=== PATIENT | female | born 1945 | race Caucasian/White ===

== ENCOUNTER 2019-09-30 16:16 | Emergency (ER) | payer OTHER ==
[~2019-09-30] VITALS: Ht 170.2 cm; Wt 126.6 kg
--- NOTE | 2019-09-30 16:24 | NUR ---
adam, from home, altered than usual since yesterday around 9am per [facility]N, PT [id number], PT ON MONITOR, PENDING MD BELLE
[2019-09-30] MEDS ORDERED: IV NS 0.9% 1,000 ML BAG IV ONE ×2 (16:30→18:30)
[2019-09-30 16:48] LABS: BASOPHILS # (AUTO) 0.1 /CMM (0.0-0.2); BASOPHILS % (AUTO) 0.5 % (0.0-2.0); HEMATOCRIT 45 % (33-45); HEMOGLOBIN 14.7 g/dL (11.5-14.8); LYMPHOCYTES # (AUTO) 0.7 /CMM (0.8-4.8); LYMPHOCYTES % (AUTO) 6.8 % (20.0-44.0); MEAN CORPUSCULAR HGB CONC 33 g/dl (31.0-36.0); MEAN CORPUSCULAR VOLUME 94 fL (82-100); MONOCYTES # (AUTO) 0.4 /CMM (0.1-1.30); MONOCYTES % (AUTO) 3.9 % (2.0-12.0); NEUTROPHILS # (AUTO) 9.4 /CMM (1.8-8.9); NEUTROPHILS % (AUTO) 88.8 % (43.0-81.0); PLATELET COUNT (AUTO) 177 /CMM (150-450); RED BLOOD CELL COUNT(AUTO) 4.77 MIL/uL (4.0-5.2); WHITE BLOOD COUNT (AUTO) 10.6 K/uL (4.3-11.0)
[2019-09-30 16:59] LABS: CALCIUM, SERUM 9.5 mg/dL (8.5-10.1); CARBON DIOXIDE 23 mmol/L (21-32); CHLORIDE 104 mmol/L (98-107); GLUCOSE 253 mg/dL (74-106); POTASSIUM 4.7 mmol/L (3.5-5.1); SODIUM SERUM 139 mmol/L (136-145); UREA NITROGEN, BLOOD 33 mg/dL (7-18)
[2019-09-30 17:05] LABS: ACETAMINOPHEN < 2 ug/ml (10-30); ALANINE AMINOTRANSFERASE 126 U/L (12-78); ALBUMIN 2.8 g/dL (3.4-5.0); ALCOHOL, BLOOD < 3 mg/dL (0-0); ALKALINE PHOSPHATASE 244 U/L (46-116); ASPARTATE AMINOTRANSFERASE 95 U/L (15-37); BILIRUBIN,DIRECT 0.3 mg/dL (0.0-0.2); BILIRUBIN,TOTAL 1.8 mg/dL (0.2-1.0); SALICYLATE < 0.2 mg/dL (2.8-20.0); TOTAL PROTEIN, SERUM 7.4 g/dL (6.4-8.2)
[2019-09-30 17:22] LABS: SERUM AMMONIA 0 umol/L (11-32)
[2019-09-30 17:52] LABS: APPEARANCE,URINE Cloudy (CLEAR); BILIRUBIN,URINE LARGE (NEGATIVE); BLOOD, URINE Large Ery/uL (NEGATIVE); COLOR,URINE Amber (YELLOW); KETONES,URINE Negative (NEGATIVE); LEUKOCYTE ESTERASE ,URINE Large (NEGATIVE); NITRITE, URINE Negative (NEGATIVE); PROTEIN,URINE >=300 mg/dl (NEGATIVE); UGLUCOSE Negative (NEGATIVE)
[2019-09-30 18:05] LABS: BACTERIA,URINE 2+ /HPF (None Seen); RBC,URINE 21-50 /HPF (0-2); SQUAMOUS EPITHELIAL CELL,UR Few /HPF (None Seen); WBC,URINE 21-50 /HPF (0-3)
--- NOTE | 2019-09-30 18:10 | NUR ---
CALLED [facility] [phone] KLEIN
[2019-09-30] MEDS ORDERED: AZITHROMYCIN 500 MG in IV D5W 250 ML IV ONE (18:30)
[2019-09-30] MEDS ORDERED: CEFTRIAXONE 1 G in IV D5W 50 ML IV ONE (18:30)
--- NOTE | 2019-09-30 18:39 | NUR ---
DR. BARRAZA FROM [facility] SPEAKING WITH DR. KLEIN
[2019-09-30 18:46] VITALS: BP 119/52
--- NOTE | 2019-09-30 19:29 | NUR ---
SPOKE TO [place] [facility]. PT ACCEPTED AT [facility] IN THE ER. REPORT: MD: DR. Katerina BARNEY ROOM: ER ETA FOR [facility]: 20 MIN
--- NOTE | 2019-09-30 19:50 | NUR ---
called sams melissa x2 unable to give report at this time
--- NOTE | 2019-09-30 19:59 | NUR ---
report given to sarah rubio nurse at [facility].
--- NOTE | 2019-09-30 20:20 | NUR ---
PT LEFT [facility]IA [facility] TO [facility]; PT LEFT IN STABLE CONDITION, VSS, ALL PAPERWORK GIVEN TO AMBULANCE STAFF, REPORT GIVEN
== END 2019-09-30 20:38 | disposition short-term general hospital (02) ==
LOC: ER 16:18
DX: J18.9 Pneumonia, unspecified organism (principal); J81.1 Chronic pulmonary edema; N30.00 Acute cystitis without hematuria; E86.0 Dehydration; N17.9 Acute kidney failure, unspecified; R74.0 Nonspecific elevation of levels of transaminase and lactic acid dehydrogenase [LDH]; I10 Essential (primary) hypertension; E11.9 Type 2 diabetes mellitus without complications
CPT/HCPCS: 36415; 70450; 71045; 74176; 80048; 80076; 80305; 80307; 80329; 81001; 82140; 84484; 85025; 85730; 87077; 87086; 87186; 96361; 96365; 96368; 99285; G0480; J0456; J0696; J7030; J7060 ×2; 81000-TC